=== PATIENT | female | born 2000 | race Caucasian/White ===

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

== ENCOUNTER 2021-11-22 18:54 | Inpatient (IN) | payer MEDICAID ==
[~2021-11-22] VITALS: Ht 180.3 cm; Wt 63.2 kg
[~2021-11-22 18:54] MED LIST changes: +ARIP20TA20 PO; -ARIP20TA9 PO; +CLIN-144 PO; -CLIN300C11 PO; -MMT17NA NS; -MMT17NA NSEACH; +MOME17SP4 NS; +MOME17SP4 NSEACH; -OLAN5TAB25 PO; +OLN5T PO; +SERT-414 PO; -SERT100T8 PO
[2021-11-22] MEDS ORDERED: LACTATED RINGERS 1,000 ML IV SCH (19:30)
[2021-11-22] MEDS ORDERED: MINERAL OIL 30 ML UDC TOP PRN (19:30)
[2021-11-22 20:05] LABS: BASOPHILS % (AUTO) 0 % (0-10); EOSINOPHILS # (AUTO) 0.1 10^3/uL (0.0-0.3); EOSINOPHILS % (AUTO) 1 % (0-10); HEMATOCRIT 34 % (35-52); HEMOGLOBIN 11.1 g/dL (11.5-16.0); LYMPHOCYTES # (AUTO) 2.3 10^3/uL (1.0-4.0); LYMPHOCYTES % (AUTO) 20 % (12-44); MEAN CORPUSCULAR HEMOGLOBIN 30 pg (25-34); MEAN CORPUSCULAR HGB CONC 33 g/dL (32-36); MEAN CORPUSCULAR VOLUME 89 fL (80-99); MEAN PLATELET VOLUME 10.5 fL (9.0-12.2); MONOCYTES # (AUTO) 0.7 10^3/uL (0.0-1.0); MONOCYTES % (AUTO) 6 % (0-12); NEUTROPHILS # (AUTO) 8.4 10^3/uL (1.8-7.8); NEUTROPHILS % (AUTO) 73 % (42-75); PLATELET COUNT 290 10^3/uL (130-400); WHITE BLOOD COUNT 11.6 10^3/uL (4.3-11.0)
[2021-11-22] MEDS ORDERED: D5 LR IV SOLUTION 1,000 ML IV ONE (20:25)
[2021-11-22] MEDS: D5 LR IV SOLUTION 1,000 ML IV SCH (20:30)
[2021-11-22 20:36] VITALS: BP 117/75
[2021-11-22 21:12] VITALS: BP 101/61
[2021-11-22] MEDS ORDERED: CATHETER FLUSH 10 ML SYR IV SCH (22:00)
[2021-11-22 23:15] VITALS: BP 89/53
[2021-11-23] VITALS (17 sets, daily range): BP systolic 96–113; BP diastolic 53–79
[2021-11-23] MEDS ORDERED: ACETAMINOPHEN 500 MG TAB (TYLENOL) PO ONE (03:30)
[2021-11-23] MEDS ORDERED: ACETAMINOPHEN 500 MG TAB (TYLENOL) ONE (03:31)
[2021-11-23] MEDS ORDERED: BUTORPHANOL INJ 2 MG/ML (STADOL) VIAL ONE (04:08)
[2021-11-23] MEDS ORDERED: BUTORPHANOL INJ 2 MG/ML (STADOL) VIAL IV PRN ×2 (04:15→04:30)
[2021-11-23] MEDS: D5 LR IV SOLUTION 1,000 ML IV SCH (04:30)
[2021-11-23] MEDS ORDERED: LIDOCAINE 1% INJ 10 ML VIAL ONE (05:45)
[2021-11-23] MEDS ORDERED: OXYTOCIN PRE-MIX DRIP 500 ML IV ONE (05:46)
--- NOTE | 2021-11-23 06:17 | History & Physical-OB ---
OB - Chief Complaint & HPI Date/Time Date of Admission: Date of Admission: Nov 22, 2021 at 18:54 Date seen by a Provider: Nov 23, 2021 Time Seen by a Provider: 05:50 Chief Complaint/History OB-Reason for Admission/Chief: Induction of Labor Hx : 2 Hx Para: 1 Expected Date of Delivery: Nov 29, 2021 Gestational Age in Weeks: 39 Gestational Age in Days: 0 Admission Nurse Assessment Rev: Yes History of Labs GBS negative Allergies and Home Medications Allergies Coded Allergies: azithromycin (Unverified Allergy, Severe, ANAPHYLAXIS, 08/12/18) erythromycin base (Verified Allergy, Severe, ANAPHYLAXIS, 08/12/18) influenza virus vaccine, specific (Unverified Allergy, Severe, TIM PHYLAXIS, 08/12/18) oseltamivir (Unverified Allergy, Severe, ANAPHYLAXIS, 08/12/18) penicillin (Unverified Allergy, Severe, ANAPHYLAXIS, 08/12/18) venom-honey bee (Unverified Allergy, Severe, ANAPHYLAXIS, 08/12/18) amoxicillin (Verified Allergy, Unknown, 08/12/18) clavulanic acid (Verified Allergy, Unknown, 08/12/18) Patient Home Medication List Home Medication List Reviewed: Yes Albuterol Sulfate (Ventolin Hfa) 18 Gm Hfa.aer.ad, 2 PUFF IH Q4H PRN for WHEEZING, (Reported) Entered as Reported by: RASHID COPELAND on 03/31/15 1130 Albuterol Sulfate (Ventolin Hfa) 1 Puff Puff, 2 PUFF INH Q4H PRN for WHEEZING Prescribed by: KETTY STOVER on 04/04/19 0652 Alfuzosin HCl (Uroxatral) 10 Mg Tab.sr.24h, 10 MG PO DAILY Prescribed by: LENNY SHELLEY on 04/16/19 0655 Aripiprazole (Abilify) 5 Mg Tablet, (Reported) Entered as Reported by: JOSE ANTONIO PEDERSEN on 08/12/18 2258 Guanfacine HCl (Intuniv) 3 Mg Tab.er.24h, 3 MG PO DAILY, (Reported) Entered as Reported by: SAUL MAXWELL on 03/14/17 1028 Hydrocodone/Acetaminophen (Hydrocodone/Acetaminophen 5 MG/325 MG TAB) 1 Each Tablet, 1 TAB PO Q6H PRN for PAIN-BREAKTHROUGH Prescribed by: KRISTI MCKEON on 04/18/19 0555 Metoclopramide HCl (Reglan) 10 Mg Tablet, 10 MG PO Q8H PRN for NAUSEA/VOMITING Prescribed by: LENNY SHELLEY on 04/16/19 0655 Naproxen (Naprosyn) 500 Mg Tablet, 500 MG PO BID Prescribed by: LENNY SHELLEY on 04/16/19 0655 Nitrofurantoin Monohyd/M-Cryst (Macrobid 100 mg Capsule) 100 Mg Capsule, 100 MG PO BID Prescribed by: SOFIA PARRISH on 05/07/17 1547 Nitrofurantoin Monohyd/M-Cryst (Macrobid 100 mg Capsule) 100 Mg Capsule, 100 MG PO BID Prescribed by: SOFIA PARRISH on 08/12/18 2246 Olanzapine (Olanzapine) 5 Mg Tablet, 5 MG PO DAILY, (Reported) Entered as Reported by: SAUL MAXWELL on 03/14/17 1028 Oxcarbazepine (Oxcarbazepine) 600 Mg Tablet, 600 MG PO BID, (Reported) Entered as Reported by: SAUL MAXWELL on 03/14/17 1028 Ranitidine HCl (Acid Buttonhole Maker Hand (RANITIDINE)) 150 Mg Tablet, 150 MG PO BID, (Reported) Entered as Reported by: RASHID COPELAND on 03/31/15 1130 Sertraline HCl (Sertraline HCl) 100 Mg Tablet, 100 MG PO DAILY, (Reported) Entered as Reported by: SAUL MAXWELL on 03/14/17 1028 OB - History Hx of Present Care: Yes Ultrasounds: Normal mid trimester US (except small for gestational age) Obstetrical Complications: Growth Restriction Medical Complications: None Delivery History Hx Blood Disorders: No Adverse Rxn to Tranfusion: No (N/A) Patient Past Medical History no chronic medical problems Social History/Family History 2nd Hand Smoke Exposure: Yes Immunizations Influenza Vaccine Up-to-Date: No; Not Current OB - Admission Exam Physical Exam Vitals: Vital Signs 11/22/21 11/22/21 11/23/21 20:36 21:12 04:30 Temp 36.2 Pulse 88 Resp 18 B/P (MAP) 96/56 (69) Pulse Ox 99 O2 Delivery Room Air HEENT: Moist Membranes Heart: Rhythm Normal Lungs: Clear Abdomen: Gravid Extremities: Normal Reflexes: Normal Cervical Dilatation: 2cm (on admission) Effacement: 75% Station: -2 Membranes: Intact Heart Rate: 130's Accelerations: Accelerations Present Short Term Variability: Present Mottle Lay Up Operator Variability: Average (6-25) Contractions on Admission: >10 Minutes Apart Intensity: Mild Alas Scoring Tool (Modified) Dilation (cm): 1-2cm (1) Effacement (%): 51-79% (2) Descent/Station: -2 (1) Cervix Consistency: Medium(1) Cervix Position: Middle/Mid-Position (1) Alas Score: 6 Labs Laboratory Tests Test 11/22/21 19:52 Range/Units White Blood Count 11.6 H 4.3-11.0 10^3/uL Red Blood Count 3.75 L 3.80-5.11 10^6/uL Hemoglobin 11.1 L 11.5-16.0 g/dL Hematocrit 34 L 35-52 % Mean Corpuscular Volume 89 80-99 fL Mean Corpuscular Hemoglobin 30 25-34 pg Mean Corpuscular Hemoglobin Concent 33 32-36 g/dL Red Cell Distribution Width 13.5 10.0-14.5 % Platelet Count 290 130-400 10^3/uL Mean Platelet Volume 10.5 9.0-12.2 fL Immature Granulocyte % (Auto) 1 % Neutrophils (%) (Auto) 73 42-75 % Lymphocytes (%) (Auto) 20 12-44 % Monocytes (%) (Auto) 6 0-12 % Eosinophils (%) (Auto) 1 0-10 % Basophils (%) (Auto) 0 0-10 % Neutrophils # (Auto) 8.4 H 1.8-7.8 10^3/uL Lymphocytes # (Auto) 2.3 1.0-4.0 10^3/uL Monocytes # (Auto) 0.7 0.0-1.0 10^3/uL Eosinophils # (Auto) 0.1 0.0-0.3 10^3/uL Basophils # (Auto) 0.0 0.0-0.1 10^3/uL Immature Granulocyte # (Auto) 0.1 0.0-0.1 10^3/uL OB - Assessment/Plan/Diagnosis Assessment Assessment: induction of labor Admission Dx 1. IUP at term 39 weeks 2. IUGR Admission Status: Inpatient Order (span 2 midnights) Reason for Inpatient Admission: Induction of labor with cytotec Plan Plan: Induction Induction Method: per Misoprostol Protocol Other Plan -pitocin if needed GOLDIE PEREA MD Nov 23, 2021 06:17
--- NOTE | 2021-11-23 06:21 | OB Labor & Delivery Record ---
L&D History Date of Service Date of Service: Nov 23, 2021 History Expected Date of Delivery: Nov 29, 2021 Gestational Age in Weeks: 39 Hx : 2 Hx Para: 1 Complications Events: Routine care (except for iugr) Operative Indications (Cesarea: N/A-Vaginal Delivery Intrapartal Events: None L&D Stage1 Stage One Onset of Labor - Date: Nov 23, 2021 Onset of Labor - Time: 04:00 Monitors and Tracing Monitor Mode: External Heart Rate: 130 Monitor Accelerations: Uniform Monitor Decelerations: None Station: -3 Maintenance Machinist Variability: Average (6-10) Short Term Variability: Present Presentation: Vertex Vital Signs VS - Last 72 Hours, by Label 11/22/21 11/22/21 11/22/21 11/23/21 20:36 21:12 23:15 00:22 Temp 36.2 Pulse 103 89 79 97 Resp 18 18 18 18 B/P (MAP) 101/61 (74) 89/53 (65) 102/64 (77) Pulse Ox 97 O2 Delivery Room Air Room Air 11/23/21 11/23/21 11/23/21 01:15 03:15 04:30 Pulse 65 77 88 Resp 18 18 18 B/P (MAP) 106/61 (76) 102/53 (69) 96/56 (69) Pulse Ox 99 Signs of Distress by FHT Signs of Distress no Rupture of Membranes Spontaneous Ruture of Membrane: Yes Amniotic Membrane Rupture Time: 05:54 Amniotic Membrane Fluid Desc.: Clear Vaginal Bleeding Description: None L&D Stage2 Stage Two Stage II Date: Nov 23, 2021 Stage II Time: 05:56 Monitors and Tracing Monitor Mode: External Heart Rate: 130 Monitor Accelerations: Uniform Monitor Decelerations: Variable Senior Living Variability: Average (6-10) Position: Left Occiput Anterior Presentation: Vertex Signs of Distress by FHT Signs of Distress no Cord Descript/Complications Cord Vessel Description: 3 Vessels Delivery Type Infant Delivery Method: Spontaneous Vaginal Anterior Shoulder: Left Episiotomy/Perineal Laceration Laceraction(s)/Extensions: No Condition of Infant Delivery 1 minute Comment: 8 5 minute Comment: 9 Condition of Condition of : Living Exam: No Observed Abnormalities Resuscitation Resuscitation: N/A - Spontaneous Resp L&D Stage3 Stage Three Stage III Date: Nov 23, 2021 Stage III Time: 06:02 Pictocin Pitocin ml/hr: 125 Placenta Delivery Placenta Delivery: Spontaneous Delivery Summary Summary Estimated blood loss (mL): 250 Condition of Delivery Examined: Cervix Examined Post Hemorrhage: No Intervention Required none GOLDIE PEREA MD Nov 23, 2021 06:21
[2021-11-23] MEDS ORDERED: WITCH HAZEL(TUCKS) 40 EA JAR TOP PRN (06:30)
[2021-11-23] MEDS ORDERED: BENZOCAINE/MENTHOL (DERMOPLAST) 56 ML CAN TP PRN (06:30)
[2021-11-23] MEDS ORDERED: OXYTOCIN PRE-MIX DRIP 500 ML IV SCH (06:30)
[2021-11-23] MEDS ORDERED: MEASLES,MUMPS,RUBELLA 1 EA INJ SQ ONE (06:30)
[2021-11-23] MEDS ORDERED: TETANUS,DIPTH,PERTUSS P/F (BOOSTRIX) 0.5 ML VIAL IM ONE (06:30)
[2021-11-23] MEDS ORDERED: NALOXONE 0.4 MG/ML 1 ML (NARCAN) VIAL IV PRN (06:30)
[2021-11-23] MEDS: IBUPROFEN 600 MG (MOTRIN) TAB PO SCH ×3 (06:59→18:23)
[2021-11-23] MEDS: ACETAMINOPHEN 500 MG TAB (TYLENOL) PO SCH ×2 (06:59→16:24)
[2021-11-23 07:35] LABS: AMPHETAMINE SCREEN, URINE NEGATIVE (NEGATIVE); BARBITURATE SCREEN URINE NEGATIVE (NEGATIVE); BENZODIAZEPINES SCREEN URINE NEGATIVE (NEGATIVE); CANNABINOID SCREEN, URINE NEGATIVE (NEGATIVE); COCAINE SCREEN URINE NEGATIVE (NEGATIVE); METHADONE STAT NEGATIVE (NEGATIVE); OPIATE SCREEN URINE NEGATIVE (NEGATIVE); OXYCODONE STAT NEGATIVE (NEGATIVE); PROPOXYPHENE STAT NEGATIVE (NEGATIVE); TRICYCLIC ANTIDEPRESSANTS SCRE NEGATIVE (NEGATIVE)
[2021-11-23] MEDS ORDERED: CATHETER FLUSH 10 ML SYR IV SCH (14:00)
[2021-11-23] MEDS: DOCUSATE SODIUM 100 MG (COLACE) CAP PO SCH ×2 (20:12→21:27)
[2021-11-24] MEDS: ACETAMINOPHEN 500 MG TAB (TYLENOL) PO SCH ×3 (00:52→09:21)
[2021-11-24 00:55] VITALS: BP 95/50
[2021-11-24] MEDS: IBUPROFEN 600 MG (MOTRIN) TAB PO SCH ×2 (00:55→06:11)
[2021-11-24 05:35] VITALS: BP 111/74
[2021-11-24 06:06] LABS: BASOPHILS # (AUTO) 0.1 10^3/uL (0.0-0.1); BASOPHILS % (AUTO) 0 % (0-10); EOSINOPHILS # (AUTO) 0.2 10^3/uL (0.0-0.3); EOSINOPHILS % (AUTO) 2 % (0-10); HEMATOCRIT 27 % (35-52); HEMOGLOBIN 8.7 g/dL (11.5-16.0); LYMPHOCYTES # (AUTO) 4.1 10^3/uL (1.0-4.0); LYMPHOCYTES % (AUTO) 29 % (12-44); MEAN CORPUSCULAR HGB CONC 33 g/dL (32-36); MEAN CORPUSCULAR VOLUME 91 fL (80-99); MEAN PLATELET VOLUME 10.9 fL (9.0-12.2); MONOCYTES # (AUTO) 0.8 10^3/uL (0.0-1.0); MONOCYTES % (AUTO) 6 % (0-12); NEUTROPHILS # (AUTO) 9.1 10^3/uL (1.8-7.8); NEUTROPHILS % (AUTO) 63 % (42-75); PLATELET COUNT 231 10^3/uL (130-400); WHITE BLOOD COUNT 14.4 10^3/uL (4.3-11.0)
[2021-11-24 06:07] LABS: MEAN CORPUSCULAR HEMOGLOBIN 29 pg (25-34)
--- NOTE | 2021-11-24 08:05 | Discharge Summary ---
Diagnosis/Chief Complaint Date of Admission Nov 22, 2021 at 18:54 Date of Discharge November 24, 2021 Admission Diagnosis Admission Diagnosis 1. Intrauterine at term 39 weeks gestation 2. IUGR Discharge Diagnosis 1. Intrauterine at term 39 weeks gestation 2. IUGR Chief Complaint/HPI Chief Complaint/HPI 21-year-old 2 now term 1 L1 who initially presented to labor and delivery for induction of labor during the evening of November 22, 2021. She underwent Cytotec ripening and had excellent contraction response. She was noted to be GBS negative at 36 weeks gestation. Ultrasound at term revealed weighing at the 12th percentile. Discharge Summary-OBS Procedures 1. Spontaneous vaginal delivery Discharge Physical Examination Allergies: Coded Allergies: azithromycin (Unverified Allergy, Severe, ANAPHYLAXIS, 08/12/18) erythromycin base (Verified Allergy, Severe, ANAPHYLAXIS, 08/12/18) influenza virus vaccine, specific (Unverified Allergy, Severe, ANAPHYLAXIS, 08/12/18) oseltamivir (Unverified Allergy, Severe, ANAPHYLAXIS, 08/12/18) penicillin (Unverified Allergy, Severe, ANAPHYLAXIS, 08/12/18) venom-honey bee (Unverified Allergy, Severe, ANAPHYLAXIS, 08/12/18) amoxicillin (Verified Allergy, Unknown, 08/12/18) clavulanic acid (Verified Allergy, Unknown, 08/12/18) Vitals & I&Os Vital Sign - Last 12Hours Date Time Temp Pulse Resp B/P (MAP) Pulse Ox O2 Delivery O2 Flow Rate FiO2 11/24/21 05:35 36.3 90 18 111/74 (86) 98 Room Air General Appearance: Alert, No Acute Distress Respiratory: Clear to Auscultation Cardiovascular: Regular Rate Neuro: Normal Speech Hospital Course Was the Problem List Reviewed?: Yes Patient was admitted during the evening of November 22, 2021 and underwent Cytotec induction. She tolerated well with adequate contractions. Ultimately she went into labor workers compensation defense attorney of November 23. She delivered a term viable small for gestational age female with Apgars of 8 at 1 minute and 9 at 5 minutes. Mother had not received any epidural. See labor and delivery note for full details. Following delivery she underwent routine care orders. She had no complications during the remainder of hospital stay other than her hemoglobin did drop to 8.7. She was asymptomatic with regard to the hemoglobin. She will be started on iron outpatient. Labs Laboratory Tests 11/24/21 05:55: White Blood Count 14.4H, Red Blood Count 2.95L, Hemoglobin 8.7#L, Hematocrit 27L , Mean Corpuscular Volume 91, Mean Corpuscular Hemoglobin 29, Mean Corpuscular Hemoglobin Concent 33, Red Cell Distribution Width 13.8, Platelet Count 231, Mean Platelet Volume 10.9, Immature Granulocyte % (Auto) 1, Neutrophils (%) (Auto) 63, Lymphocytes (%) (Auto) 29, Monocytes (%) (Auto) 6, Eosinophils (%) (Auto) 2, Basophils (%) (Auto) 0, Neutrophils # (Auto) 9.1H, Lymphocytes # (Auto) 4.1H, Monocytes # (Auto) 0.8, Eosinophils # (Auto) 0.2, Basophils # (Auto) 0.1, Immature Granulocyte # (Auto) 0.1 Discharge Instructions to patient/family Please see electronic discharge instructions given to patient. Discharge Medications Reviewed and agree with Discharge Medication list on patient's Discharge Instruction sheet GOLDIE PEREA MD Nov 24, 2021 08:05
--- NOTE | 2021-11-24 08:07 | Discharge Inst-Women's Service ---
Discharge Inst-Women's Serv Depart Medication/Instructions Problems Reviewed?: Yes Consults/Follow Up Additional Follow Up: Yes (Dr Perea in 6 weeks.) Activity Driving Instructions: No Driving for 1 Week Nothing Inside Vagina: No [place] (for 6 weeks.) Return to The Hospital For: as below Symptoms to Report to : Bleeding Excessive, Fever Over 101 Degrees F, Vaginal Discharge Foul For Any Problems or Questions: Contact Your Physician GOLDIE PEREA MD Nov 24, 2021 08:07
[2021-11-24] MEDS: DOCUSATE SODIUM 100 MG (COLACE) CAP PO SCH (09:21)
== END 2021-11-24 09:45 | disposition home or self-care (01) | DRG 807 ==
LOC: LDRP 18:54
PROVIDERS: ADMIT Family Medicine; ATTEND Family Medicine
PROC: 10E0XZZ Delivery of Products of Conception, External Approach (ICD-10-PCS; principal; 2021-11-23)
PROC: 3E033VJ Introduction of Other Hormone into Peripheral Vein, Percutaneous Approach (ICD-10-PCS; 2021-11-23)
DX: O36.5930 Maternal care for other known or suspected poor fetal growth, third trimester, not applicable or unspecified (principal); Z37.0 Single live birth; Z3A.39 39 weeks gestation of pregnancy
CPT/HCPCS: 36415; 80306; 85025; 86780; 86850; 86900; 86901